=== PATIENT | female | born 1995 | race African-American/Black ===

== ENCOUNTER 2021-04-30 22:06 | Emergency (ER) | payer SELFPAY ==
[~2021-04-30] VITALS: Ht 167.6 cm; Wt 64.0 kg
[2021-04-30 22:08] VITALS: BP 104/62
[2021-04-30 22:39] LABS: ALBUMIN 3.7 g/dL (3.4-5.0); ANION GAP 5 mmol/L (5-15); BASOPHILS % (AUTO) 2 % (0-1); CALCIUM 8.9 mg/dL (8.5-10.1); CHLORIDE 107 mmol/L (98-107); CREATININE 0.68 mg/dL (0.55-1.02); EOSINOPHILS % (AUTO) 6 % (1-7); LYMPHOCYTES % (AUTO) 31 % (22-44); MEAN CORPUSCULAR HEMOGLOBIN 27.6 pg (27.0-34.8); MEAN CORPUSCULAR HGB CONC 33.1 g/dL (32.4-35.8); MEAN PLATELET VOLUME 8.2 fL (7.4-10.4); MONOCYTES % (AUTO) 10 % (2-9); NEUTROPHILS % (AUTO) 52 % (42-75); PLATELET COUNT 229 x10^3/uL (130-400); RED BLOOD COUNT 4.33 x10^6/uL (3.82-5.3); RED CELL DISTRIBUTION WIDTH 14.4 % (9.6-15.2)
--- NOTE | 2021-05-01 01:54 | NUR ---
[facility] CONFIRMED THEY HAVE PTS UA. RUNNING IT AT THIS TIME.
[2021-05-01 02:07] LABS: MICROSCOPIC AUTO
--- NOTE | 2021-05-01 02:15 | NUR ---
PT WAS SEEN LEAVING ED W/O BEING DISCHARGED
== END 2021-05-01 02:16 | disposition left against medical advice (07) ==
LOC: ED 23:05
DX: R10.32 Left lower quadrant pain (principal)
CPT/HCPCS: 36415; 80048; 81001; 82040; 84703; 85025; 87077; 87086; 99283